=== PATIENT | female | born 1960 | race Hispanic/Latino ===

== ENCOUNTER → 2024-07-08 | Outpatient (CLI) | payer OTHER ==
[~2024-07-08] MED LIST: GADOTERATE MEGLUMINE 10 MMOL/20 ML VIAL IV ONE
--- NOTE | 2024-07-08 13:04 | HMCIMG ---
MR ABDOMEN W/WO CON HISTORY: Malignant neoplasm of hepatic flexure. COMPARISON: None TECHNIQUE: MRI of the abdomen was performed utilizing multiple pulse sequences in axial, coronal and sagittal planes. Patient was given 18 cc of Clariscan through intravenous route. FINDINGS: No pleural effusion is seen. Liver measures 17 cm. Spleen measures 7 cm. The adrenal glands and pancreas are normal. Sludge material is seen in the gallbladder. Both kidneys are seen without hydronephrosis. There is an enhancing mass in the right hepatic lobe measuring 3 x 2 cm. IMPRESSION: 1. Right hepatic mass measuring 3 x 2 cm with neoplastic process.
== END | disposition home or self-care (01) ==
LOC: RAH 08:44
PROVIDERS: ATTEND Surgery Surgical Oncology
DX: C18.3 Malignant neoplasm of hepatic flexure (principal); C77.2 Secondary and unspecified malignant neoplasm of intra-abdominal lymph nodes; R16.0 Hepatomegaly, not elsewhere classified
CPT/HCPCS: 74183; A9575